=== PATIENT | female | born 1930 | race Caucasian/White ===

== ENCOUNTER → 2016-09-28 | Outpatient (CLI) | payer OTHER, MEDICAID ==
--- NOTE | 2016-09-28 17:05 | MRI ---
MRI BRAIN WITHOUT CONTRAST CLINICAL HISTORY: 86-year-old female with altered mental status and confusion. COMPARISON: None. TECHNIQUE: Multiplanar, multisequence MR images of the brain were obtained without contrast. FINDINGS: There is no evidence of diffusion restriction. The craniocervical junction is normal. Pitu itary and optic nerve complex are normal. Prior skin insult involving the left frontoparietal lobe w ith associated large volume macro cystic encephalomalacia and mild gliosis. There is mild confluent T2 FLAIR hyperintense signal in periventricular and supraventricular distribution. Normal signal radha racteristics and morphology are demonstrated within the cerebral cortex, corpus callosum, deep celestin nuclei, brainstem and cerebellum. The ventricular system is normal in size and morphology. The basil ar cisterns are normal. There is loss of normal flow-void within the left internal carotid artery that extends from the imag ed cervical segment to the distal horizontal petrous portion. Remaining major vascular flow voids to include the dural venous sinuses are intact. Bilateral lens implants with otherwise unremarkable appearance of the orbits and globes. Poorly pneu matized frontal sinuses with polypoid mucosal thickening in the left maxillary sinus. Remaining para nasal sinuses, mastoid air cells and tympanic cavities are clear. IMPRESSION: 1. No acute ischemic or hemorrhagic insult. 2. 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 3. Mild chronic microvascular white matter ischemic disease. 4. Loss of the normal flow void within the left internal carotid artery as described, recommend CTA head and neck. Reported By:
== END | disposition home or self-care (01) ==
LOC: RAD 15:58
PROVIDERS: ATTEND Internal Medicine
DX: R41.82 Altered mental status, unspecified (principal)
CPT/HCPCS: 70551